=== PATIENT | male | born 1980 | race American Indian/Alaskan Native ===

== ENCOUNTER 2017-08-15 12:01 | Emergency (ER) | payer BC ==
[2017-08-15 12:12] VITALS: BP 127/83
[2017-08-15] MEDS ORDERED: TORADOL IV ONE (13:21)
[2017-08-15] MEDS ORDERED: ZOFRAN IV ONE (13:21)
[2017-08-15] MEDS ORDERED: NACL 0.9% 1000 ML 1,000 ML IV ONE (13:21)
--- NOTE | 2017-08-15 13:21 | Emergency Department Report ---
Blank Doc - Documentation Documentation: Patient is a 37-year-old -[place] male who is presenting with abdominal pain nausea vomiting diarrhea chills starting last night. Patient states he's vomited and had episodes of diarrhea too numerous to count. Patient denies any fever or cough. Labs studies will be ordered as well as a urinalysis and CT abdomen and pelvis will be ordered as well.
--- NOTE | 2017-08-15 14:08 | Emergency Department Report ---
ED Asthma HPI - General Chief Complaint: Upper Respiratory Infection Stated Complaint: CHEST PAIN/ABDOMINAL PAIN Time Seen by Provider: 08/15/17 13:00 Source: patient Mode of arrival: Ambulatory Limitations: No Limitations - Related Data Previous Rx's Medication Instructions Recorded Last Taken Type ALBUTEROL Inhaler [ProAir HFA 2 puff IH QID PRN #1 device 04/22/13 Unknown Rx Inhaler] predniSONE [Deltasone] 50 mg PO QDAY #5 tab 04/22/13 Unknown Rx traMADol [Ultram 50 MG tab] 50 mg PO Q6HR PRN #25 tablet 04/22/13 Unknown Rx Allergies Allergy/AdvReac Type Severity Reaction Status Date / Time Penicillins Allergy Unknown Verified 04/22/13 01:34 seafood Allergy Hives Uncoded 04/22/13 01:34 ED Review of Systems ROS: Stated complaint: CHEST PAIN/ABDOMINAL PAIN Other details as noted in HPI ED Past Medical Hx - Past Medical History Hx Asthma: Yes (since age 25) - Surgical History Past Surgical History?: No - Social History Smoking Status: Never Smoker Substance Use Type: None - Medications Home Medications: Home Medications Medication Instructions Recorded Confirmed Last Taken Type ALBUTEROL Inhaler [ProAir HFA 2 puff IH QID PRN #1 device 04/22/13 Unknown Rx Inhaler] predniSONE [Deltasone] 50 mg PO QDAY #5 tab 04/22/13 Unknown Rx traMADol [Ultram 50 MG tab] 50 mg PO Q6HR PRN #25 tablet 04/22/13 Unknown Rx ED Physical Exam - General Limitations: No Limitations ED Course Vital Signs 08/15/17 12:08 Temperature 97.8 F Pulse Rate 104 H Respiratory 16 Rate Blood Pressure 127/83 O2 Sat by Pulse 100 Oximetry Critical care attestation.: If time is entered above; I have spent that time in minutes in the direct care of this critically ill patient, excluding procedure time. ED Disposition Condition: Stable Referrals: PRIMARY CARE,MD [Primary Care Provider] - 3-5 Days
--- NOTE | 2017-08-15 14:09 | Emergency Department Report ---
ED Abdominal Pain HPI - General Chief Complaint: Upper Respiratory Infection Stated Complaint: CHEST PAIN/ABDOMINAL PAIN Time Seen by Provider: 08/15/17 13:00 Source: patient, family Mode of arrival: Ambulatory Limitations: No Limitations - History of Present Illness Initial Comments: Patient reports abdominal pain with nausea vomiting and diarrhea after eating and racetrack pain which at 3 AM this morning. He said it started at 4 AM. Denies any fever or chills. Denies any bloody diarrhea. He had 2 episode of vomiting today with 3 episodes of diarrhea. Patient said he had some burning to his mid chest area this morning when it started but he is not having any present. He is reporting abdominal cramping that comes on and off. Denies any urinary burning frequency or urgency. He has a history of asthma. MD Complaint: abdominal pain, other (nausea vomiting and diarrhea with episodic chest pain) -: This morning Location: LLQ, RLQ Radiation: none Migration to: no migration Severity: mild Severity scale (0 -10): 5 Quality: cramping Improves With: nothing Worsens With: nothing, vomiting Context: possible food poisoning Associated Symptoms: nausea, vomiting, diarrhea. denies: fever, chills, constipation, dysuria, hematemesis, hematochezia, melena, hematuria, anorexia, syncope Treatments Prior to Arrival: other (none) - Related Data Previous Rx's Medication Instructions Recorded Last Taken Type ALBUTEROL Inhaler [ProAir HFA 2 puff IH QID PRN #1 device 04/22/13 Unknown Rx Inhaler] predniSONE [Deltasone] 50 mg PO QDAY #5 tab 04/22/13 Unknown Rx traMADol [Ultram 50 MG tab] 50 mg PO Q6HR PRN #25 tablet 04/22/13 Unknown Rx Dicyclomine [Bentyl] 40 mg PO Q8H PRN #12 tablet 08/15/17 Unknown Rx Promethazine [Phenergan TAB] 25 mg PO Q6HR PRN #12 tab 08/15/17 Unknown Rx Allergies Allergy/AdvReac Type Severity Reaction Status Date / Time Penicillins Allergy Unknown Verified 04/22/13 01:34 seafood Allergy Hives Uncoded 04/22/13 01:34 ED Review of Systems ROS: Stated complaint: CHEST PAIN/ABDOMINAL PAIN Other details as noted in HPI Comment: All other systems reviewed and negative Constitutional: no symptoms reported ENT: denies: throat pain Respiratory: no symptoms reported Cardiovascular: denies: chest pain, palpitations, dyspnea on exertion, edema, syncope, paroxysmal nocturnal dyspnea Gastrointestinal: abdominal pain, nausea, vomiting, diarrhea. denies: constipation, hematemesis, melena, hematochezia Genitourinary: denies: dysuria, hematuria Musculoskeletal: denies: arthralgia Skin: denies: rash Neurological: denies: headache, weakness, abnormal gait ED Past Medical Hx - Past Medical History Previous Medical History?: Yes Hx Asthma: Yes (since age 25) - Surgical History Past Surgical History?: No - Family History Family history: no significant - Social History Smoking Status: Never Smoker Substance Use Type: None - Medications Home Medications: Home Medications Medication Instructions Recorded Confirmed Last Taken Type ALBUTEROL Inhaler [ProAir HFA 2 puff IH QID PRN #1 device 04/22/13 Unknown Rx Inhaler] predniSONE [Deltasone] 50 mg PO QDAY #5 tab 04/22/13 Unknown Rx traMADol [Ultram 50 MG tab] 50 mg PO Q6HR PRN #25 tablet 04/22/13 Unknown Rx Dicyclomine [Bentyl] 40 mg PO Q8H PRN #12 tablet 08/15/17 Unknown Rx Promethazine [Phenergan TAB] 25 mg PO Q6HR PRN #12 tab 08/15/17 Unknown Rx ED Physical Exam - General Limitations: No Limitations General appearance: alert, in no apparent distress - Head Head exam: Present: atraumatic, normocephalic, normal inspection - Eye Eye exam: Present: PERRL, EOMI. Absent: periorbital swelling, periorbital tenderness Pupils: Present: normal accommodation - ENT ENT exam: Present: normal orophraynx, mucous membranes dry, TM's normal bilaterally, normal external ear exam. Absent: normal exam - Neck Neck exam: Present: normal inspection, full ROM. Absent: tenderness, meningismus, lymphadenopathy, thyromegaly - Respiratory Respiratory exam: Present: normal lung sounds bilaterally. Absent: respiratory distress, chest wall tenderness, accessory muscle use - Cardiovascular Cardiovascular Exam: Present: regular rate, normal rhythm, normal heart sounds. Absent: systolic murmur, diastolic murmur - GI/Abdominal GI/Abdominal exam: Present: soft, tenderness (pelvic area and left lower quadrant), normal bowel sounds. Absent: distended, guarding, rebound, rigid, organomegaly, mass, bruit, pulsatile mass, hernia - Extremities Exam Extremities exam: Present: normal inspection, full ROM, normal capillary refill , other (no clubbing, cyanosis or edema. +2+ distal extremities and no neurovascular compromise.). Absent: tenderness, pedal edema, joint swelling, calf tenderness - Back Exam Back exam: Present: normal inspection, full ROM, other (ambulates without any difficulties). Absent: tenderness, CVA tenderness (R), CVA tenderness (L), muscle spasm, paraspinal tenderness, vertebral tenderness, rash noted - Neurological Exam Neurological exam: Present: alert, oriented X3, normal gait, reflexes normal. Absent: motor sensory deficit - Psychiatric Psychiatric exam: Present: normal affect, normal mood - Skin Skin exam: Present: warm, dry, intact, normal color. Absent: rash ED Course Vital Signs 08/15/17 08/15/17 12:08 19:15 Temperature 97.8 F Pulse Rate 104 H 82 Respiratory 16 Rate Blood Pressure 127/83 O2 Sat by Pulse 100 Oximetry - Reevaluation(s) Reevaluation #1: 08/15/17 15:18 She received Toradol 30 mg IV, Zofran 4 mg IV and normal saline 1 L. Abdominal exam is stable. He still with some tenderness to his left lower quadrant. Reevaluation #2: 08/15/17 17:15 Patient stable no distress. Abdominal exam is normal. Patient is able to tolerate melani dave without any nausea or vomiting. He said he still no better Reevaluation #3: 08/15/17 19:20 CT scan of the abdomen and pelvis with IV contrast revealed no acute abdominal or pelvic pathology. ED Medical Decision Making - Lab Data Result diagrams: 08/15/17 13:38 08/15/17 13:38 Lab Results 08/15/17 08/15/17 08/15/17 Range/Units 13:38 13:38 14:48 WBC 10.4 (4.5-11.0) K/mm3 RBC 5.34 H (3.65-5.03) M/mm3 Hgb 15.6 H (11.8-15.2) gm/dl Hct 46.0 H (35.5-45.6) % MCV 86 (84-94) fl MCH 29 (28-32) pg MCHC 34 (32-34) % RDW 12.6 L (13.2-15.2) % Plt Count 254 (140-440) K/mm3 Add Manual Diff Complete Total Counted 100 Seg Neutrophils % Supervisor Machine Setter Seg Neuts % (Manual) 93.0 H (40.0-70.0) % Band Neutrophils % 0 % Lymphocytes % (Manual) 2.0 L (13.4-35.0) % Reactive Lymphs % (Man) 0 % Monocytes % (Manual) 5.0 (0.0-7.3) % Eosinophils % (Manual) 0 (0.0-4.3) % Basophils % (Manual) 0 (0.0-1.8) % Metamyelocytes % 0 % Myelocytes % 0 % Promyelocytes % 0 % Blast Cells % 0 % Nucleated RBC % Not Reportable Seg Neutrophils # Man 9.7 H (1.8-7.7) K/mm3 Band Neutrophils # 0.0 K/mm3 Lymphocytes # (Manual) 0.2 L (1.2-5.4) K/mm3 Abs React Lymphs (Man) 0.0 K/mm3 Monocytes # (Manual) 0.5 (0.0-0.8) K/mm3 Eosinophils # (Manual) 0.0 (0.0-0.4) K/mm3 Basophils # (Manual) 0.0 (0.0-0.1) K/mm3 Metamyelocytes # 0.0 K/mm3 Myelocytes # 0.0 K/mm3 Promyelocytes # 0.0 K/mm3 Blast Cells # 0.0 K/mm3 WBC Morphology Not Reportable Hypersegmented Neuts Not Reportable Hyposegmented Neuts Not Reportable Hypogranular Neuts Not Reportable Smudge Cells Not Reportable Toxic Granulation Not Reportable Toxic Vacuolation Not Reportable Dohle Bodies Not Reportable Pelger-Huet Anomaly Not Reportable Janet Rods Not Reportable Platelet Estimate Consistent w auto Clumped Platelets Not Reportable Plt Clumps, EDTA Not Reportable Large Platelets Not Reportable Giant Platelets Not Reportable Platelet Satelliting Not Reportable Plt Morphology Comment Not Reportable RBC Morphology Normal Dimorphic RBCs Not Reportable Polychromasia Not Reportable Hypochromasia Not Reportable Poikilocytosis Not Reportable Anisocytosis Not Reportable Microcytosis Not Reportable Macrocytosis Not Reportable Spherocytes Not Reportable Pappenheimer Bodies Not Reportable Sickle Cells Not Reportable Target Cells Not Reportable Tear Drop Cells Not Reportable Ovalocytes Not Reportable Helmet Cells Not Reportable [place] Bodies Not Reportable [place] Rings Not Reportable [place] Cells Not Reportable Bite Cells Not Reportable Crenated Cell Not Reportable Elliptocytes Not Reportable Acanthocytes (Spur) Not Reportable Rouleaux Not Reportable Hemoglobin C Crystals Not Reportable Schistocytes Not Reportable Malaria parasites Not Reportable Santana Bodies Not Reportable Hem Pathologist Commnt No Sodium 141 (137-145) mmol/L Potassium 3.9 (3.6-5.0) mmol/L Chloride 99.9 (98-107) mmol/L Carbon Dioxide 20 L (22-30) mmol/L Anion Gap 25 mmol/L BUN 16 (9-20) mg/dL Creatinine 1.1 (0.8-1.5) mg/dL Estimated GFR > 60 ml/min BUN/Creatinine Ratio 15 % Glucose 114 H (75-100) mg/dL Calcium 9.0 (8.4-10.2) mg/dL Total Bilirubin 1.00 (0.1-1.2) mg/dL Direct Bilirubin 0.2 (0-0.2) mg/dL Indirect Bilirubin 0.8 mg/dL AST 20 (5-40) units/L ALT 11 (7-56) units/L Alkaline Phosphatase 62 (35-129) units/L Total Protein 7.4 (6.3-8.2) g/dL Albumin 4.3 (3.9-5) g/dL Albumin/Globulin Ratio 1.4 % Lipase 29 (13-60) units/L Urine Color Yellow (Yellow) Urine Turbidity Clear (Clear) Urine pH 8.0 H (5.0-7.0) Ur Specific [place] 1.028 (1.003-1.030) Urine Protein 30 mg/dl (Negative) mg/dL Urine Glucose (UA) Neg (Negative) mg/dL Urine Ketones 20 (Negative) mg/dL Urine Blood Neg (Negative) Urine Nitrite Neg (Negative) Urine Bilirubin Neg (Negative) Urine Urobilinogen < 2.0 (<2.0) mg/dL Ur Leukocyte Esterase Neg (Negative) Urine WBC (Auto) 1.0 (0.0-6.0) /HPF Urine RBC (Auto) 6.0 (0.0-6.0) /HPF Urine Mucus Few /HPF - EKG Data -: EKG Interpreted by Me (attending physician) EKG shows normal: sinus rhythm (76 bpm) Rate: normal - EKG Data Interpretation: no acute changes, normal EKG - Radiology Data Radiology results: report reviewed CT scan of the abdomen and pelvis with IV contrast revealed no acute abdominal pathology - Medical Decision Making ED course: Patient here report that he's had nausea vomiting and diarrhea with some abdominal pain and had episodic chest pain after eating in growth she can think is from [employer]. He said he ate the same was at 3 AM and he started getting sick at 4 AM this morning. He has no episode of vomiting or diarrhea but he said he has abdominal cramping on and off. He has no episode of chest pain in emergency room but had it at 4 AM when he started to have nausea and vomiting. Patient has no history of heart disease and denies any medical problem except for asthma. He was given IV fluids 1 L, Zofran 4 mg IV and Toradol 30 mg IV and multiple reassessment of the abdomen remained stable with last one being nontender to palpate. Patient's CBC is normal with mild elevation and hematocrit and hemoglobin, urinalysis is normal except for some protein in urine and trace ketone, chemistry stable values. Patient's CT scan reveals no abdominal pathology. I discussed the patient is a result, EKG and CT scan result. Patient was able to tolerate fluids well. I discussed with him that he'll need to follow-up with his primary care physician and if he doesn 't have one follow-up at [facility]. Critical care attestation.: If time is entered above; I have spent that time in minutes in the direct care of this critically ill patient, excluding procedure time. ED Disposition Clinical Impression: Nausea vomiting and diarrhea, Gastroenteritis, Dehydration, mild Abdominal pain Qualifiers: Abdominal location: upper abdomen, unspecified Qualified Code(s): R10.10 - Upper abdominal pain, unspecified Disposition: DC-01 TO HOME OR SELFCARE Is pt being admited?: No Does the pt Need Aspirin: No Condition: Stable Instructions: Dehydration (ED), Gastroenteritis (ED), Acute Nausea and Vomiting (ED), Acute Diarrhea (ED), Abdominal Pain (ED), Nutrition Tips for Relief of Diarrhea (ED) Additional Instructions: Please increase her fluid intake Diet to include banana, rice, applesauce and toast for the next 72 hours Take Phenergan for nausea but please drive her operate heavy machinery while taking this medication as a cause drowsiness Prescriptions: Dicyclomine [Bentyl] 40 mg PO Q8H PRN #12 tablet PRN Reason: ABDOMINAL CRAMP Promethazine [Phenergan TAB] 25 mg PO Q6HR PRN #12 tab PRN Reason: Nausea Referrals: PRIMARY CARE, [Primary Care Provider] - 08/16/17 [facility] [Outside] - 08/16/17 Forms: Work/School Release Form(ED)
[2017-08-15 14:55] LABS: Hemoglobin 15.6 gm/dl (11.8-15.2); Mean Corpuscular HGB Conc 34 % (32-34); Mean Corpuscular Hemoglobin 29 pg (28-32); Mean Corpuscular Volume 86 fl (84-94); Platelet Count 254 K/mm3 (140-440); Red Blood Count 5.34 M/mm3 (3.65-5.03); Red Cell Distribution Width 12.6 % (13.2-15.2)
[2017-08-15 15:09] LABS: Alanine Aminotransferase 11 units/L (7-56); Albumin 4.3 g/dL (3.9-5); BUN/Creatinine Ratio 15; Blood Urea Nitrogen 16 mg/dL (9-20); Hemolysis Index 35; Lipase 29 units/L (13-60)
[2017-08-15 15:20] LABS: Bilirubin,Urine NEG (Negative); Blood,Urine NEG (Negative); Color,Urine Yellow (Yellow); Mucus,Urine FEW /HPF; Nitrite,Urine NEG (Negative); Urobilinogen,Urine < 2.0 mg/dL (<2.0)
[2017-08-15 16:00] LABS: Bilirubin,Direct 0.2 mg/dL (0-0.2)
[2017-08-15 17:00] LABS: Basophils % (Manual) 0 % (0.0-1.8); Eosinophils % (Manual) 0 % (0.0-4.3); Total Cells Counted 100
[2017-08-15 17:01] LABS: Platelet Estimate Consistent w Auto; RBC Morphology Normal
--- NOTE | 2017-08-15 17:21 | Cat Scan Report ---
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 Hurt back about an hour - getting stiffer as time passes TECHNIQUE: CT examination of the ABDOMEN after IV contrast CT examination of the PELVIS after IV contrast PRIORS: None. FINDINGS: Normal-appearing liver, gallbladder, adrenals, pancreas, and spleen. Intact normal caliber abdominal aorta and IVC. Normal-appearing kidneys and visible ureteral segments. No retroperitoneal adenopathy. No mesenteric mass. Normal-appearing stomach and duodenum. No small bowel distention in the abdomen and pelvis. No pelvic free fluid. Normal-appearing urinary bladder, prostate, seminal vesicles, and rectum. Normal-appearing sigmoid colon. No gross ascites, free air, or colonic distention. Normal-appearing cecum, terminal ileum, and appendix. Intact anterior abdominal wall. No evidence of vertebral compression fracture or disc narrowing. No acute fracture or dislocation. IMPRESSION: No CT evidence of acute pathology
== END 2017-08-15 19:43 | disposition home or self-care (01) ==
LOC: ED 12:01
DX: K52.9 Noninfective gastroenteritis and colitis, unspecified (principal); E86.0 Dehydration; R10.10 Upper abdominal pain, unspecified; J45.909 Unspecified asthma, uncomplicated
CPT/HCPCS: 36415; 74177; 80048; 80074; 81001; 83690; 85007; 85025; 93005; 93010; 96361; 96374; 96375; 99284; J1885; J2405; J7030; Q9967